=== PATIENT | male | born 1995 | race Caucasian/White ===

== ENCOUNTER 2021-09-18 19:31 | Emergency (ER) | payer SELFPAY ==
--- NOTE | 2021-09-18 19:42 | NUR ---
PER ADMITTING STAFF, PT LEFT FACILITY AT THIS TIME AND DOES NOT WISH TO BE EVALUATED. DR. DAVILA MADE AWARE.
== END 2021-09-18 19:42 | disposition left against medical advice (07) ==
LOC: MED 19:31
DX: Z53.21 Procedure and treatment not carried out due to patient leaving prior to being seen by health care provider (principal)

== ENCOUNTER 2021-09-20 03:15 | Emergency (ER) | payer MEDICAID ==
[~2021-09-20] VITALS: Ht 177.8 cm; Wt 113.4 kg
[2021-09-20 03:18] VITALS: BP 149/94
--- NOTE | 2021-09-20 03:59 | NUR ---
PT AMBULATED TO BED 04.
[2021-09-20 04:12] VITALS: BP 132/72
--- NOTE | 2021-09-20 04:15 | NUR ---
PATIENT DC HOME STABLE NOT COMPLAINING OF PAIN VITAL SIGNS IN NORMAL LIMITS ALL DC INSTRUCTION GAVE TO THE PATIENT AND EXPLAINED CARE OF THE HARRISON AND THE BAG WE PLACE A NEW BAG AND RECOMEND GO TO SEE THE PCP OR COMING BACK TO THE HOSPITAL IF THE SYMPTOMS GET WORSE OR NOT IMPROVE //Brant RN
== END 2021-09-20 04:15 | disposition home or self-care (01) ==
LOC: MED 03:15
DX: T83.118A Breakdown (mechanical) of other urinary devices and implants, initial encounter (principal); Y84.8 Other medical procedures as the cause of abnormal reaction of the patient, or of later complication, without mention of misadventure at the time of the procedure; Y92.89 Other specified places as the place of occurrence of the external cause
CPT/HCPCS: 99284